=== PATIENT | male | born 1960 | race Caucasian/White ===

== ENCOUNTER 2017-07-17 06:55 | Day surgery (SDC) | payer BC ==
[~2017-07-17] VITALS: Ht 182.9 cm; Wt 126.6 kg
[~2017-07-17 06:55] MED LIST: AMLO10TA2 PO; ASPI-621 PO; EZET10TA18 PO; INSU100I17 SC; LISI40TA PO; METF500T9 PO; METO25TA35 PO; MULT-516 PO
[2017-07-17] MEDS ORDERED: BUPIVACAINE LIPOSOME/PF INFIL ONE (07:09)
[2017-07-17] MEDS ORDERED: LACTATED RINGERS 1,000 ML IV SCH (07:42)
[2017-07-17] MEDS ORDERED: SUCCINYLCHOLINE 20 MG/ML, 10ML ONE (11:15)
[2017-07-17] MEDS ORDERED: ROCURONIUM 10 MG/ML ONE (11:15)
[2017-07-17] MEDS ORDERED: FENTANYL PF 100 MCG/2ML ONE ×2 (11:15)
[2017-07-17] MEDS ORDERED: PROPOFOL 10 MG/ML, 20ML ONE ×2 (11:15)
[2017-07-17] MEDS ORDERED: FENTANYL PF 100 MCG/2ML IV PRN (11:30)
[2017-07-17] MEDS ORDERED: MEPERIDINE/PF 25MG/0.5ML IVPush PRN (11:30)
[2017-07-17] MEDS ORDERED: ACETAMINOPHEN 325 MG TABLET PO PRN (11:30)
[2017-07-17] MEDS ORDERED: LABETALOL 5MG/ML, 20ML IV PRN (11:30)
[2017-07-17] MEDS ORDERED: ONDANSETRON 2MG/ML, 2ML IVPush PRN (11:30)
[2017-07-17] MEDS ORDERED: HYDROmorphone 1 MG/ML, 1ML IV PRN (11:30)
[2017-07-17] MEDS ORDERED: OXYcodone 5 MG/5 ML ORAL.SOL UDC PO PRN (11:30)
[2017-07-17] MEDS ORDERED: PROMETHAZINE 25 MG/ML, 1ML IV PRN (11:30)
[2017-07-17] MEDS ORDERED: hydrALAzine 20 MG/ML, 1ML IV PRN (11:30)
[2017-07-17] MEDS ORDERED: OXYcodone 5 MG/5 ML ORAL.SOL UDC ONE (12:10)
[2017-07-17] MEDS ORDERED: HYDROmorphone 1 MG/ML, 1ML ONE (12:10)
[2017-07-17] MEDS ORDERED: ONDANSETRON 2MG/ML, 2ML IVPush ONE (14:00)
== END 2017-07-17 16:15 ==
LOC: OUT 06:55 → MERGE 09:00 → UNMERGE 09:00 → OUT 16:15
PROVIDERS: ATTEND Surgery
DX: K64.8 Other hemorrhoids (principal); K64.4 Residual hemorrhoidal skin tags; E11.9 Type 2 diabetes mellitus without complications; E78.00 Pure hypercholesterolemia, unspecified; I10 Essential (primary) hypertension; E66.9 Obesity, unspecified; Z68.32 Body mass index [BMI] 32.0-32.9, adult; Z98.890 Other specified postprocedural states; Z72.89 Other problems related to lifestyle; Z87.891 Personal history of nicotine dependence
CPT/HCPCS: 46260; 82962; 88304; C9290; J0330; J1170; J2405; J2704; J3010; J7120